=== PATIENT | female | born 1970 | race Asian ===

== ENCOUNTER 2017-12-16 09:37 | Emergency (ER) | payer MEDICAID ==
[~2017-12-16] VITALS: Ht 162.6 cm; Wt 79.0 kg
[2017-12-16] MEDS ORDERED: MORPHINE SULFATE 4 MG/ML CPJ (NOT FOR IM USE) IV STA (11:36)
[2017-12-16] MEDS ORDERED: ONDANSETRON HCL 4MG/2ML INJ IV STA (11:36)
[2017-12-16 12:07] LABS: BASOPHILS % 0.4 % (0.0-2.0); EOSINOPHILS % 3.4 % (0.0-5.0); HEMATOCRIT. 36.8 % (36.0-48.0); HEMOGLOBIN. 12.3 g/dL (12.0-16.0); LYMPHOCYTES % 29.3 % (20.0-50.0); MEAN CORPUSCULAR HEMOGLOBIN 28.5 pg (28.0-32.0); MEAN CORPUSCULAR VOLUME 85.6 fL (81.0-99.0); MEAN PLATELET VOLUME 9.6 fl (7.4-10.4); MONOCYTES % 9.8 % (2.0-8.0); NEUTROPHILS % 57.1 % (40.0-76.0); PLATELET 229 x1000/uL (130-400); RED CELL DISTRIBUTION WIDTH 13.4 % (11.6-14.6)
[2017-12-16 12:09] LABS: CHLORIDE 105 mEq/L (98-107)
[2017-12-16 12:16] LABS: HCG SCREEN NEGATIVE
[2017-12-16 12:30] LABS: CLARITY URINE CLEAR (CLEAR); COLOR URINE YELLOW (YELLOW); KETONES URINE NEGATIVE (NEGATIVE); LEUKOCYTE ESTERASE URINE NEGATIVE (NEGATIVE); NITRITE URINE NEGATIVE (NEGATIVE); OCCULT BLOOD URINE NEGATIVE (NEGATIVE); PROTEIN URINE NEGATIVE (NEGATIVE); SPECIFIC GRAVITY URINE 1.016 (1.005-1.030); UROBILINOGEN URINE 0.2 E.U./dL (0.2-1.0)
[2017-12-16 15:39] VITALS: BP 96/55
== END 2017-12-16 15:42 | disposition home or self-care (01) ==
LOC: ER 11:05
DX: M54.89 Other dorsalgia (principal); R10.2 Pelvic and perineal pain; R42 Dizziness and giddiness; E11.9 Type 2 diabetes mellitus without complications
CPT/HCPCS: 36415; 74176; 80053; 81003; 81025; 82962; 83690; 84703; 85025; 85610; 96374; 96375; 99285; J2270; J2405; J7040

== ENCOUNTER 2017-12-28 17:10 | Emergency (ER) | payer MEDICAID ==
[~2017-12-28] VITALS: Ht 157.5 cm; Wt 79.0 kg
[2017-12-28] MEDS ORDERED: KETOROLAC 60MG/2ML VIAL IM ONE (19:30)
[2017-12-28 20:11] LABS: CLARITY URINE CLEAR (CLEAR); COLOR URINE YELLOW (YELLOW); KETONES URINE NEGATIVE (NEGATIVE); LEUKOCYTE ESTERASE URINE 1+ (NEGATIVE); NITRITE URINE NEGATIVE (NEGATIVE); OCCULT BLOOD URINE TRACE (NEGATIVE); PROTEIN URINE NEGATIVE (NEGATIVE); SPECIFIC GRAVITY URINE 1.005 (1.005-1.030); UROBILINOGEN URINE 0.2 E.U./dL (0.2-1.0)
[2017-12-28 21:00] VITALS: BP 123/64
== END 2017-12-28 21:02 | disposition home or self-care (01) ==
LOC: ER 19:49
DX: N30.00 Acute cystitis without hematuria (principal); M54.89 Other dorsalgia; I51.9 Heart disease, unspecified; E11.9 Type 2 diabetes mellitus without complications
CPT/HCPCS: 81003; 81025; 96372; 99283; J1885

== ENCOUNTER 2021-01-25 14:45 | Emergency (ER) | payer MEDICAID ==
[~2021-01-25] VITALS: Ht 157.5 cm; Wt 82.0 kg
[2021-01-25 14:51] VITALS: BP 110/61
== END 2021-01-25 20:00 | disposition left against medical advice (07) ==
LOC: ER 14:45
DX: Z53.21 Procedure and treatment not carried out due to patient leaving prior to being seen by health care provider (principal)

== ENCOUNTER 2023-07-18 17:36 | Emergency (ER) | payer MEDICAID, OTHER ==
[~2023-07-18] VITALS: Ht 165.1 cm; Wt 81.0 kg
[2023-07-18 17:37] VITALS: O2SAT 98
[2023-07-18 19:56] LABS: BASOPHILS % 0.3 % (0.0-2.0); EOSINOPHILS % 1.2 % (0.0-5.0); HEMATOCRIT. 38.7 % (36.0-48.0); LYMPHOCYTES % 23.6 % (20.0-50.0); MEAN CORPUSCULAR HEMOGLOBIN 29.6 pg (28.0-32.0); MEAN CORPUSCULAR HGB CONC 33.5 g/dL (31.0-37.0); MEAN CORPUSCULAR VOLUME 88.6 fL (81.0-99.0); MEAN PLATELET VOLUME 9.7 fl (7.4-10.4); MONOCYTES % 7.8 % (2.0-8.0); NEUTROPHILS % 67.1 % (40.0-76.0); PLATELET 237 x1000/uL (130-400); RED BLOOD CELL COUNT 4.37 mill/uL (4.2-5.4)
[2023-07-18 20:01] LABS: CHLORIDE 104 mEq/L (98-107); POTASSIUM 4.1 mEq/L (3.5-5.1); SODIUM 135 mEq/L (136-145)
[2023-07-18 20:02] LABS: CALCIUM 9.4 mg/dL (8.7-10.4); CARBON DIOXIDE 27 mEq/L (21-32)
[2023-07-18 20:07] LABS: CREATININE 0.7 mg/dL (0.6-1.0); GLUCOSE 101 mg/dL (70-105); UREA NITROGEN BLOOD 13 mg/dL (9-23)
[2023-07-18 20:28] LABS: TROPONIN I HIGH SENSITIVITY 53 ng/L (3.0-34)
[2023-07-18 20:55] VITALS: BP 98/52; PULSE 76; RESP 13; TEMP 98
[2023-07-18 21:55] LABS: ALANINE AMINOTRANSFERASE 48 IU/L (10-49); ASPARTATE AMINOTRANSFERASE 40 IU/L (<34); BILIRUBIN DIRECT 0.1 mg/dL (<=3.0); BILIRUBIN TOTAL 0.4 mg/dL (0.1-1.0); PROTEIN TOTAL 7.1 g/dL (6.0-8.3)
[2023-07-18] MEDS: ASPIRIN 325MG EC TABLET PO ONE (21:55)
[2023-07-18 21:57] LABS: T4 FREE 1.04 ng/dL (0.89-1.76)
[2023-07-18 21:58] LABS: THYROID STIMULATING HORMONE 2.08 uIU/mL (0.55-4.78)
[2023-07-18 22:45] LABS: TROPONIN I HIGH SENSITIVITY 73 ng/L (3.0-34)
== END 2023-07-18 23:00 | disposition left against medical advice (07) ==
LOC: ER 17:36
DX: R00.2 Palpitations (principal); E11.9 Type 2 diabetes mellitus without complications; Z98.890 Other specified postprocedural states
CPT/HCPCS: 36415; 71045; 80048; 80076; 83735; 83880; 84439; 84443; 84484; 85025; 93005; 99285